=== PATIENT | female | born 1965 | race African-American/Black ===

== ENCOUNTER 2017-02-14 09:01 | Emergency (ER) | payer SELFPAY | END 2017-02-14 09:30 | disposition home or self-care (01) | LOC: MADERS 09:01 | DX: H60.502 Unspecified acute noninfective otitis externa, left ear (principal); E11.9 Type 2 diabetes mellitus without complications; I10 Essential (primary) hypertension | CPT/HCPCS: 99282 ==

== ENCOUNTER 2017-03-26 17:48 | Emergency (ER) | payer SELFPAY ==
[2017-03-26] MEDS ORDERED: Amoxicillin/Potassium Clav 875 MG TAB ONE (19:35)
== END 2017-03-26 19:44 | disposition home or self-care (01) ==
LOC: MADERS 17:48
DX: J40 Bronchitis, not specified as acute or chronic (principal); E11.9 Type 2 diabetes mellitus without complications; I10 Essential (primary) hypertension; Z79.84 Long term (current) use of oral hypoglycemic drugs; Z79.899 Other long term (current) drug therapy
CPT/HCPCS: 99283

== ENCOUNTER 2017-04-09 13:39 | Outpatient (CLI) | payer OTHER ==
--- NOTE | 2017-04-09 14:36 | RAD ---
3 VIEWS RIGHT KNEE: Date: 04/09/17 COMPARISON: 02/24/14. HISTORY: Knee pain. FINDINGS: There is mild lateral compartment narrowing with mild lateral tibial plateau osteophyte formation. Th ere is moderate medial compartment narrowing with prominent osteophyte formation involving the medial tibial plateau and medial femoral condyle. There is moderate patellofemoral joint space narrowing with subchondral sclerosis and osteophyte form ation. No fracture, dislocation, or knee joint effusion. IMPRESSION: Multicompartment degenerative change involving the right knee with no displaced fracture or dislocati on. The patellofemoral and medial compartment degenerative change has worsened since the prior exam. POS: [facility]
--- NOTE | 2017-04-09 14:38 | RAD ---
3 VIEWS LEFT KNEE: Date: 04/09/17 COMPARISON: None. HISTORY: Knee pain, osteoarthritis. FINDINGS: There is moderate medial compartment narrowing with associated osteophyte formation involving the med ial tibial plateau and medial femoral condyle. There is mild lateral compartment narrowing. There is moderate patellofemoral joint space narrowing with posterior patellar osteophyte formation. There is enthesophyte formation at the insertion of the quadriceps tendon. There is no displaced fracture or e vidence of dislocation seen. IMPRESSION: Multicompartment osteoarthritic changes with no displaced fracture or evidence of dislocation seen. POS: [facility]
== END 2017-04-09 13:40 | disposition home or self-care (01) ==
LOC: MADRAD 13:39
PROVIDERS: ATTEND Family Medicine
DX: M17.12 Unilateral primary osteoarthritis, left knee (principal)

== ENCOUNTER 2017-07-14 05:47 | Emergency (ER) | payer OTHER ==
[2017-07-14] MEDS ORDERED: Promethazine HCl 25 MG/ML VIAL ONE (06:20)
== END 2017-07-14 06:44 | disposition home or self-care (01) ==
LOC: MADERS 05:47
DX: K29.70 Gastritis, unspecified, without bleeding (principal); E11.9 Type 2 diabetes mellitus without complications; I10 Essential (primary) hypertension; Z79.891 Long term (current) use of opiate analgesic; Z79.899 Other long term (current) drug therapy
CPT/HCPCS: 96372; J2550

== ENCOUNTER 2019-01-05 11:45 | Outpatient (CLI) | payer OTHER ==
--- NOTE | 2019-01-05 13:05 | RAD ---
TWO VIEW CHEST: HISTORY: Cough. FINDINGS: Lungs appear clear. No infiltrate identified. Heart and mediastinum unremarkable. IMPRESSION: No acute abnormality. POS: H
== END 2019-01-05 11:46 | disposition home or self-care (01) ==
LOC: MADRAD 11:45
PROVIDERS: ATTEND Family Medicine
DX: R05 Cough (principal)
CPT/HCPCS: 71046

== ENCOUNTER 2019-01-30 11:18 | Emergency (ER) | payer OTHER, SELFPAY | END 2019-01-30 11:50 | disposition home or self-care (01) | LOC: MADERS 11:18 | DX: M25.561 Pain in right knee (principal); J45.909 Unspecified asthma, uncomplicated; E11.9 Type 2 diabetes mellitus without complications; I10 Essential (primary) hypertension; M19.90 Unspecified osteoarthritis, unspecified site; Z79.899 Other long term (current) drug therapy; Z79.84 Long term (current) use of oral hypoglycemic drugs | CPT/HCPCS: 99281 ==

== ENCOUNTER 2019-06-30 11:54 | Outpatient (CLI) | payer OTHER ==
--- NOTE | 2019-06-30 12:18 | RAD ---
RIGHT KNEE 3 VIEWS: Date: 06/30/2019 HISTORY: Right knee pain. FINDINGS/IMPRESSION: Multicompartmental degenerative changes are again seen as on 04/09/2017. No acute fracture, dislocati on, or bony destruction is seen. POS: [facility]
--- NOTE | 2019-06-30 13:23 | RAD ---
LEFT HAND 3 VIEWS: Date: 06/30/2019 HISTORY: Left hand pain. FINDINGS/IMPRESSION: No fracture, dislocation, or bony destruction is identified. POS: [facility]
== END 2019-06-30 11:55 | disposition home or self-care (01) ==
LOC: MADRAD 11:54
PROVIDERS: ATTEND Orthopaedic Surgery
DX: M79.642 Pain in left hand (principal); M17.11 Unilateral primary osteoarthritis, right knee

== ENCOUNTER 2019-08-12 11:59 | Outpatient (CLI) | payer OTHER | END 2019-08-12 12:00 | disposition home or self-care (01) | LOC: MADEKG 11:59 | PROVIDERS: ATTEND Family Medicine | DX: R42 Dizziness and giddiness (principal) | CPT/HCPCS: 93005; 93010 ==

== ENCOUNTER 2019-09-01 12:18 | Outpatient (CLI) | payer OTHER ==
--- NOTE | 2019-09-01 13:56 | RAD ---
LEFT KNEE 3 VIEWS: Date: 09/01/2019 HISTORY: Chronic left knee pain. FINDINGS: Degenerative changes are present manifested by osteophyte formation and joint space narrowing, most p rominent in the medial tibiofemoral and patellofemoral compartments. No acute fracture, dislocation, or bony destruction is seen. IMPRESSION: Left knee osteoarthritis. POS: [facility]
--- NOTE | 2019-09-01 13:57 | RAD ---
RIGHT SHOULDER 3 VIEWS: Date: 09/01/2019 HISTORY: Arthritis, right shoulder pain. FINDINGS/IMPRESSION: No fracture, dislocation, or bony destruction seen. No significant arthritic changes are identified. POS: [facility]
== END 2019-09-01 12:19 | disposition home or self-care (01) ==
LOC: MADRAD 12:18
PROVIDERS: ATTEND Orthopaedic Surgery
DX: M25.562 Pain in left knee (principal); M19.011 Primary osteoarthritis, right shoulder; M17.12 Unilateral primary osteoarthritis, left knee

== ENCOUNTER 2020-01-24 13:30 | Emergency (ER) | payer OTHER ==
[2020-01-24] MEDS ORDERED: Acetaminophen 325 MG TAB ONE (15:09)
--- NOTE | 2020-01-24 15:13 | RAD ---
EXAM: Single view of the chest HISTORY: Cough and shortness of breath COMPARISON: 01/05/2019 FINDINGS: Single view of the chest shows a normal sized cardiomediastinal silhouette. Scattered perip heral areas of airspace opacity are seen in both lower lobes. No acute osseous abnormality. IMPRESSION: Bilateral lower lobe infiltrates
[2020-01-24 15:53] LABS: #Lymphocytes 1.4 thou/uL (1.20-3.40); #Monocytes 0.3 thou/uL (0.11-0.59); #Neutrophils 5.2 thou/uL (1.40-6.50); %Basophils 0.3 % (0.0-1.0); %Eosinophils 0.2 % (0.0-10.0); %Lymphocytes 19.7 % (21.0-51.0); %Monocytes 4.3 % (0.0-10.0); %Neutrophils 75.4 % (42.0-75.0); Hemoglobin 11.2 g/dL (12.0-16.0); Mean Corpuscular HGB CONC 31.2 g/dL (32.0-36.0); Mean Corpuscular Hemoglobin 26.1 pg (27.0-31.0); Mean Corpuscular Volume 83.7 fL (78.0-98.0); Mean Platelet Volume 9.8 fL (7.4-10.4); Platelet Count 192 thou/uL (130-400); RBC Distribution Width 12.6 % (11.5-14.5); Red Blood Cell (RBC) Count 4.28 mill/uL (4.20-5.40); White Blood Cell (WBC) Count 6.9 thou/uL (4.8-10.8)
[2020-01-24] MEDS ORDERED: Azithromycin 500 MG VIAL ONE (15:57)
[2020-01-24] MEDS ORDERED: cefTRIAXone\\ROCEPHIN 1 GM VIAL ONE (15:57)
[2020-01-24] MEDS ORDERED: Sodium Chloride 0.9% 200 ML ONE (15:58)
[2020-01-24 16:07] LABS: ALT (SGPT) 9 U/L (8-55); AST (SGOT) 22 U/L (5-34); Albumin 3.6 g/dL (3.5-5.0); Alkaline Phosphatase 66 U/L (40-110); Anion Gap 15 mmol/L (10-20); BUN (Urea Nitrogen) 15 mg/dL (9.8-20.1); Bilirubin, Total 0.3 mg/dL (0.2-1.2); Calc. Creatinine Clearance 0 mL/min (70-130); Calcium 8.5 mg/dL (7.8-10.44); Carbon Dioxide 26 mmol/L (22-29); Chloride 103 mmol/L (98-107); Estimated GFR-MDRD 57; Globulin 4.6 g/dL (2.4-3.5); Glucose 96 mg/dL (70-105); Potassium 3.8 mmol/L (3.5-5.1); Protein, Total 8.2 g/dL (6.0-8.3); Sodium 140 mmol/L (136-145)
[2020-01-24] MEDS ORDERED: Enoxaparin Sodium 40 MG/0.4 ML SYRINGE ONE (16:18)
[2020-01-25 10:28] LABS: SARS-CoV-2 MS2 Positive; SARS-CoV-2 N Gene Positive; SARS-CoV-2 S Gene Positive; SARS-CoV-2 by NAA DETECTED (NotDetected); SARS-CoV-2 orf1ab Positive
== END 2020-01-24 17:30 | disposition short-term general hospital (02) ==
LOC: MADERS 13:30
DX: U07.1 COVID-19 (principal); M19.90 Unspecified osteoarthritis, unspecified site; J45.909 Unspecified asthma, uncomplicated; E11.9 Type 2 diabetes mellitus without complications; I10 Essential (primary) hypertension; Z79.899 Other long term (current) drug therapy
CPT/HCPCS: 71045; 80053; 83605; 84484; 85025; 85379; 87635; 87804; 96365; 96372; 96375; J0456; J0696; J1650; J3490; U0003

== ENCOUNTER 2020-05-31 15:03 | Outpatient (CLI) | payer OTHER ==
--- NOTE | 2020-05-31 15:44 | RAD ---
EXAM: 3 views of the right shoulder HISTORY: Shoulder pain COMPARISON: 09/01/2019 FINDINGS: There is no evidence of acute fracture or dislocation. No degenerative changes are present. No soft tissue swelling is seen. The visualized thorax is unremarkable. IMPRESSION: No evidence of acute osseous abnormality.
== END 2020-05-31 15:04 | disposition home or self-care (01) ==
LOC: MADRAD 15:03
PROVIDERS: ATTEND Family Medicine
DX: M25.511 Pain in right shoulder (principal)

== ENCOUNTER 2020-09-30 04:05 | Emergency (ER) | payer OTHER ==
[2020-09-30] MEDS ORDERED: Ondansetron ODT 4 MG TAB ONE (05:22)
[2020-09-30] MEDS ORDERED: Loperamide HCl 2 MG CAP ONE (05:22)
[2020-09-30 05:34] LABS: #Eosinphils 0.1 thou/uL (0.0-0.7); #Monocytes 0.4 thou/uL (0.11-0.59); #Neutrophils 10.7 thou/uL (1.40-6.50); %Basophils 0.4 % (0.0-1.0); %Eosinophils 0.4 % (0.0-10.0); %Lymphocytes 8.4 % (21.0-51.0); %Monocytes 3.6 % (0.0-10.0); %Neutrophils 87.3 % (42.0-75.0); Hemoglobin 10.6 g/dL (12.0-16.0); Mean Corpuscular HGB CONC 29.9 g/dL (32.0-36.0); Mean Corpuscular Hemoglobin 25.2 pg (27.0-31.0); Mean Corpuscular Volume 84.3 fL (78.0-98.0); Mean Platelet Volume 8.6 fL (7.4-10.4); Platelet Count 289 thou/uL (130-400); Platelet Morphology Comment Appears Adequate; RBC Distribution Width 13.3 % (11.5-14.5); RBC Morphology Normal; Red Blood Cell (RBC) Count 4.21 mill/uL (4.20-5.40); White Blood Cell (WBC) Count 12.3 thou/uL (4.8-10.8)
[2020-09-30 05:39] LABS: ALT (SGPT) 28 U/L (8-55); AST (SGOT) 69 U/L (5-34); Albumin 3.3 g/dL (3.5-5.0); Alkaline Phosphatase 90 U/L (40-110); Anion Gap 12 mmol/L (10-20); BUN (Urea Nitrogen) 12 mg/dL (9.8-20.1); Bilirubin, Total 0.6 mg/dL (0.2-1.2); Calc. Creatinine Clearance 0 mL/min (70-130); Carbon Dioxide 27 mmol/L (22-29); Chloride 108 mmol/L (98-107); Globulin 4.2 g/dL (2.4-3.5); Glucose 175 mg/dL (70-105); Potassium 4.2 mmol/L (3.5-5.1); Protein, Total 7.5 g/dL (6.0-8.3); Sodium 143 mmol/L (136-145)
[2020-09-30 06:27] LABS: Lipase 3957 U/L (8-78)
== END 2020-09-30 06:51 | disposition home or self-care (01) ==
LOC: MADERS 04:05
DX: K85.90 Acute pancreatitis without necrosis or infection, unspecified (principal); R19.7 Diarrhea, unspecified; E11.9 Type 2 diabetes mellitus without complications; I10 Essential (primary) hypertension; E66.9 Obesity, unspecified; M19.90 Unspecified osteoarthritis, unspecified site; J45.909 Unspecified asthma, uncomplicated; Z79.899 Other long term (current) drug therapy
CPT/HCPCS: 36415; 80053; 83690; 85025; 99284; Q0162

== ENCOUNTER 2020-12-20 08:02 | Emergency (ER) | payer OTHER ==
[2020-12-20] MEDS ORDERED: Ondansetron ODT 4 MG TAB ONE (08:26)
[2020-12-20] MEDS ORDERED: Sodium Chloride 0.9% 1,000 ML ONE (09:00)
[2020-12-20] MEDS ORDERED: Morphine 2 MG/ML VIAL ONE ×2 (09:00→13:40)
[2020-12-20 09:04] LABS: #Lymphocytes 0.7 thou/uL (1.20-3.40); #Monocytes 0.3 thou/uL (0.11-0.59); #Neutrophils 9.9 thou/uL (1.40-6.50); %Basophils 0.3 % (0.0-1.0); %Lymphocytes 6.5 % (21.0-51.0); %Monocytes 2.7 % (0.0-10.0); %Neutrophils 90.5 % (42.0-75.0); Hemoglobin 11.5 g/dL (12.0-16.0); Mean Corpuscular HGB CONC 30.3 g/dL (32.0-36.0); Mean Corpuscular Hemoglobin 25.9 pg (27.0-31.0); Mean Corpuscular Volume 85.3 fL (78.0-98.0); Mean Platelet Volume 9.5 fL (7.4-10.4); Platelet Count 332 thou/uL (130-400); Red Blood Cell (RBC) Count 4.43 mill/uL (4.20-5.40); White Blood Cell (WBC) Count 10.9 thou/uL (4.8-10.8)
[2020-12-20 09:21] LABS: ALT (SGPT) 52 U/L (8-55); AST (SGOT) 137 U/L (5-34); Albumin 3.4 g/dL (3.5-5.0); Alkaline Phosphatase 110 U/L (40-110); Anion Gap 12 mmol/L (10-20); BUN (Urea Nitrogen) 19 mg/dL (9.8-20.1); Bilirubin, Total 0.8 mg/dL (0.2-1.2); Calc. Creatinine Clearance 0 mL/min (70-130); Calcium 9.5 mg/dL (7.8-10.44); Carbon Dioxide 29 mmol/L (22-29); Chloride 105 mmol/L (98-107); Globulin 4.4 g/dL (2.4-3.5); Glucose 176 mg/dL (70-105); Protein, Total 7.8 g/dL (6.0-8.3); Sodium 142 mmol/L (136-145)
[2020-12-20] MEDS ORDERED: Nitroglycerin 2% Ointment 1 INCH/1 GM Packet ONE (10:08)
[2020-12-20 10:21] LABS: Lipase 4965 U/L (8-78)
[2020-12-20 10:48] LABS: Prothrombin Time 12.8 sec (12.0-14.7)
[2020-12-20 10:57] LABS: Bilirubin Small (Negative); Blood, Urine Moderate (Negative); Clarity Clear (Clear); Glucose, Urine (Dipstick) Negative (Negative); Ketone, Urine Negative (Negative); Leukocyte Negative (Negative); Nitrite Negative (Negative); Protein, Urine (Dipstick) > or equal to 300 mg/dL (Neg-Trace); Specific Gravity, Urine 1.025 (1.005-1.030); Urobilinogen > or = 8.0 mg/dL (Less than 2)
[2020-12-20 10:59] LABS: Bacteria/HPF Rare-Few HPF (None Seen); RBC/HPF 0-3 HPF (0-3); WBC/HPF 0-3 HPF (0-3)
[2020-12-20 11:50] LABS: SARS-CoV-2 NAA Rapid Test Not Detected (NotDetected)
== END 2020-12-20 13:55 | disposition short-term general hospital (02) ==
LOC: MADERS 08:02
DX: K80.20 Calculus of gallbladder without cholecystitis without obstruction (principal); K85.90 Acute pancreatitis without necrosis or infection, unspecified; I10 Essential (primary) hypertension; E11.9 Type 2 diabetes mellitus without complications; E66.9 Obesity, unspecified; J45.909 Unspecified asthma, uncomplicated; Z79.899 Other long term (current) drug therapy
CPT/HCPCS: 36416; 76705; 80053; 81003; 81015; 83605; 83690; 85025; 85610; 85730; 87040; 93005; 96374; 96376; J2270; J7050; Q0162; U0002

== ENCOUNTER 2020-12-26 14:15 | Emergency (ER) | payer OTHER | END 2020-12-26 15:00 | disposition home or self-care (01) | LOC: MADERS 14:15 | DX: Z48.01 Encounter for change or removal of surgical wound dressing (principal); E11.9 Type 2 diabetes mellitus without complications; I10 Essential (primary) hypertension; J45.909 Unspecified asthma, uncomplicated; Z79.899 Other long term (current) drug therapy | CPT/HCPCS: 99282 ==

== ENCOUNTER 2021-02-01 17:28 | Emergency (ER) | payer OTHER | END 2021-02-01 18:10 | disposition home or self-care (01) | LOC: MADERS 17:28 | DX: K43.2 Incisional hernia without obstruction or gangrene (principal); E11.9 Type 2 diabetes mellitus without complications; I10 Essential (primary) hypertension; M19.90 Unspecified osteoarthritis, unspecified site; E66.9 Obesity, unspecified; J45.909 Unspecified asthma, uncomplicated; Z79.899 Other long term (current) drug therapy | CPT/HCPCS: 99283 ==

== ENCOUNTER 2021-02-07 14:32 | Emergency (ER) | payer OTHER ==
[2021-02-07] MEDS ORDERED: Ibuprofen 800 MG TAB ONE (15:26)
[2021-02-07] MEDS ORDERED: Acetaminophen 500 MG TAB ONE (15:26)
== END 2021-02-07 15:35 | disposition home or self-care (01) ==
LOC: MADERS 14:32
DX: G89.18 Other acute postprocedural pain (principal); R10.9 Unspecified abdominal pain; L98.8 Other specified disorders of the skin and subcutaneous tissue; E11.9 Type 2 diabetes mellitus without complications; I10 Essential (primary) hypertension; E66.9 Obesity, unspecified; M19.90 Unspecified osteoarthritis, unspecified site; J45.909 Unspecified asthma, uncomplicated; Z79.899 Other long term (current) drug therapy
CPT/HCPCS: 99283

== ENCOUNTER 2024-03-22 10:48 | Emergency (ER) | payer OTHER ==
[2024-03-22] MEDS ORDERED: Ketorolac Tromethamine 30 MG (1 mL) VIAL ONE (11:12)
== END 2024-03-22 11:34 | disposition home or self-care (01) ==
LOC: MADERS 10:48
DX: M25.552 Pain in left hip (principal); M25.551 Pain in right hip; M25.562 Pain in left knee; M25.561 Pain in right knee; E11.9 Type 2 diabetes mellitus without complications; I10 Essential (primary) hypertension
CPT/HCPCS: 96372; 99283; J1885

== ENCOUNTER 2024-04-03 05:24 | Emergency (ER) | payer OTHER | END 2024-04-03 06:28 | disposition home or self-care (01) | LOC: MADERS 05:24 | DX: N61.1 Abscess of the breast and nipple (principal) | CPT/HCPCS: 87070; 87077; 87186; 87205; 99283 ==